=== PATIENT | female | born 1975 | race Hispanic/Latino ===

== ENCOUNTER 2017-09-15 11:49 | Emergency (ER) | payer MEDICAID, OTHER ==
[2017-09-15 12:17] LABS: APPEARANCE,URINE Clear (CLEAR); BILIRUBIN,URINE Negative (NEGATIVE); COLOR,URINE Yellow (YELLOW); GLUCOSE, URINE (UA) Negative (NEGATIVE); KETONES,URINE Negative (NEGATIVE); LEUKOCYTE ESTERASE ,URINE Negative (NEGATIVE); NITRATE,URINE Negative (NEGATIVE); OCCULT BLOOD,URINE Negative (NEGATIVE); PROTEIN,URINE Trace (NEGATIVE)
[2017-09-15 12:21] LABS: HCG,QUAL RESULT NEGATIVE (NEGATIVE)
[2017-09-15] MEDS ORDERED: PROCHLORPERAZINE EDISYLATE 10 MG/2 ML VIAL ONE (13:09)
== END 2017-09-15 14:48 | disposition home or self-care (01) ==
LOC: EDH 11:49
DX: G43.109 Migraine with aura, not intractable, without status migrainosus (principal)
CPT/HCPCS: 70450; 81003; 81025; 96374; 99284; J0780

== ENCOUNTER 2018-04-18 09:47 | Emergency (ER) | payer SELFPAY ==
[2018-04-18] MEDS ORDERED: BENZONATATE 100 MG CAPSULE PO ONE (10:18)
[2018-04-18] MEDS ORDERED: GUAIFENESIN SUGAR-FREE 100 MG/5 ML UDCUP ONE (10:18)
== END 2018-04-18 11:38 | disposition home or self-care (01) ==
LOC: EDH 09:47
DX: J06.9 Acute upper respiratory infection, unspecified (principal); Z90.710 Acquired absence of both cervix and uterus; Z90.49 Acquired absence of other specified parts of digestive tract
CPT/HCPCS: 71046

== ENCOUNTER 2022-12-25 17:48 | Emergency (ER) | payer BC ==
[~2022-12-25] VITALS: Ht 154.9 cm; Wt 77.1 kg
[2022-12-25] MEDS ORDERED: HYDROCODONE/ACETAMINOPHEN 5/325 MG TAB PO ONE (20:00)
[2022-12-25] MEDS ORDERED: NAPR-1192 PO (21:52)
[2022-12-25] MEDS ORDERED: CYCL10TA16 PO (21:52)
[2022-12-25 22:02] VITALS: BP 142/78; PULSE 72; RESP 16; O2SAT 97
== END 2022-12-25 22:10 | disposition home or self-care (01) ==
LOC: EDH 17:48
DX: S43.402A Unspecified sprain of left shoulder joint, initial encounter (principal); W01.0XXA Fall on same level from slipping, tripping and stumbling without subsequent striking against object, initial encounter; Y93.89 Activity, other specified; Y92.89 Other specified places as the place of occurrence of the external cause; Y99.8 Other external cause status
CPT/HCPCS: 71045; 73030

== ENCOUNTER 2024-04-02 17:15 | Emergency (ER) | payer BC ==
[~2024-04-02] VITALS: Ht 157.5 cm; Wt 81.6 kg
[~2024-04-02 17:15] MED LIST: HYDR12.54 PO; LEVO50TA4 PO; LISI5TAB21 PO
[2024-04-02] MEDS: ketOROlac 15MG/ML VIAL (15MG/ML) IM ONE (17:40)
[2024-04-02] MEDS: ORPHENADRINE 60MG/2ML IM ONE (17:40)
--- NOTE | 2024-04-02 17:49 | ERN ---
General Chief Complaint: Back Pain-No Injury Stated Complaint: BACK PAIN Time Seen by MD: 17:18 Time Seen by Midlevel: 17:18 Source: patient History of Present Illness Initial Comments Patient is a 48-year-old female with a past medical history of hypertension on lisinopril and hydrochlorothiazide presenting to the emergency department with lower back pain. 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 She does report a fall proximally 1-1/2 weeks ago. Since then she was seen her primary care doctor twice but was told everything was fine. Today she reports developing lower back pain after getting up from the floor. Denies any falls today. She specifically denies any focal weakness, numbness, tingling, urinary/bowel incontinence, or any other symptoms at this time. The pain is reproducible with movement. No other symptoms reported at this time. Allergies: Coded Allergies: No Known Drug Allergies (Unverified Allergy, Unknown, 12/25/22) Home Meds Reported Medications Levothyroxine Sodium (Synthroid 50 Mcg Tab) 50 Mcg Tablet, 50 MCG PO DAILY, TAB 07/29/23 Hydrochlorothiazide (Hydrochlorothiazide) 12.5 Mg Tablet, 12.5 MG PO DAILY, TAB 07/29/23 Lisinopril (Lisinopril) 5 Mg Tablet, 5 MG PO DAILY, TAB 07/29/23 Past Medical History Past Medical History: Hypothyroid Past Surgical History: Appendectomy, Hysterectomy, Cholecystectomy ROS Dictation CONSTITUTIONAL: Negative except for HPI HEAD/FACE: Negative except for HPI EENT: Negative except for HPI RESPIRATORY: Negative except for HPI GASTROINTESTINAL/ABDOMINAL: Negative except for HPI GENITOURINARY: Negative except for HPI MUSCULOSKELETAL: Negative except for HPI INTEGUMENTARY: Negative except for HPI NEUROLOGICAL/PSYCH: Negative except for HPI HEMATOLOGIC/LYMPHATIC: Negative except for HPI All Systems Negative, Except as noted above. 13 point review of systems assessed and all negative except for above. Physical Exam Physical Exam Dictation Vital Signs reviewed General Appearance: Alert, oriented x 3, no acute distress, well developed, nourished. Head and Face: non-traumatic. Eyes: PERRL, pink conjunctivas, eyelid no trauma, anterior chamber with arcus senilis. Ears: Pinnas intact and no signs of trauma or erythema ear canals clear and no discharge TM no erythema Nose: No discharge, no bleeding. Oropharynx: Mouth normal, tongue pink, pharynx clear,no erythema, tonsils no exudates, no abscesses noted, mucous membrane moist Neck: Supple, non-tender, no thyromegaly, no masses, no JVD, no bruits Breast:Deferred Chest:No tenderness, no crepitus, no paradoxical movement, no retractions Lungs:Clear, well-ventilated, symmetric, no rales, no wheezing, no rhonchi, no stridor, good breath sounds bilaterally Heart: Regular rate, regular rhythm, no murmur, no gallops Vascular: no peripheral edema, Abdomen: Soft, positive bowel sounds, nondistended, no guarding, nontender, no rebound, no masses no hepatomegaly, no splenomegaly, no Lopez's sign, no hernias. Rectal: Deferred Genital: Deferred Neurological: Normal speech, motor function intact, sensory function intact Musculoskeletal: Neck nontender, full range of motion, paraspinal muscle tenderness to the lumbar region, no midline tenderness, full range of motion, Extremities: nontender, full range of motion Skin: Color pink, dry, no turgor, no rash, no lacerations, no abrasions, no contusions. Lymphatic: Deferred MDM MDM: Patient is a 48-year-old female with a past medical history of hypertension on lisinopril and hydrochlorothiazide presenting to the emergency department with lower back pain. 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 She does report a fall proximally 1-1/2 weeks ago. Since then she was seen her primary care doctor twice but was told everything was fine. Today she reports developing lower back pain after getting up from the floor. Denies any falls today. She specifically denies any focal weakness, numbness, tingling, urinary/bowel incontinence, or any other symptoms at this time. The pain is reproducible with movement. No other symptoms reported at this time. Past surgical history includes hysterectomy. Initial vital signs are remarkable for a temperature of 98.4. Heart rate of 65 beats per minute. Respiratory rate of 16 breaths per minute. Blood pressure is 174/102 however patient admits to not taking her lisinopril today. O2 saturation is stable at 97% on room air. On physical examination [facility]. The pain is reproducible with movements. She has some paraspinal muscle tenderness to the lumbar region, no midline tenderness is appreciated. Patient does not have any red flag symptoms. She was 5/5 strength to bilateral upper and lower extremity. Sensation is intact. An x-ray of the lumbar spine and sacral/coccyx area does not show any acute fracture or dislocation. Patient was given pain medication in the emergency department will be discharged home with supportive management. Return precautions discussed. Differential diagnosis: Lumbar strain, acute fracture, dislocation There are no social concerns with this patient. Prescription drug management Prescriptions will include: Toradol and Flexeril Medical management and examination interpretation discussions were had by me with other qualified healthcare professionals as indicated for the patient's care. ED Course Orders Procedure Category Date Status Time Lumbar Spine 2-3vws RAD 04/02/24 Taken 17:25 Sacrum/Coccyx 2+Vws RAD 04/02/24 Taken 17:25 Ketorolac PHA 04/02/24 Complete Tromethamine 15mg/Ml 17:30 Orphenadrine Citrate PHA 04/02/24 Complete (Norflex) 17:30 Current Medications Medications (Trade) Dose Ordered Sig/Jan Route PRN Reason Start Time Stop Time Status Last Admin Dose Admin Ketorolac Tromethamine (toRADol) 15 mg ONCE ONCE IM 04/02/24 17:30 04/02/24 17:31 DC 04/02/24 17:40 Orphenadrine Citrate (Norflex) 60 mg ONCE ONCE IM 04/02/24 17:30 04/02/24 17:31 DC 04/02/24 17:40 Vital Signs Date Time Temp Pulse Resp B/P (MAP) Pulse Ox O2 Delivery O2 Flow Rate FiO2 04/02/24 17:23 98.4 65 16 174/102 97 Room Air* 0 21 04/02/24 17:18 98.4 65 16 174/102 97 Room Air 0 DX & DISP Disposition: Discharge Departure Impression: Primary Impression: Low back strain Condition: Stable Scripts Cyclobenzaprine HCl (Flexeril) 10 Mg Tab 10 MG PO TID for muscle sstiffness, #14 TAB 0 Refills Prov: JUANITA MUNIZ 04/02/24 Ketorolac Tromethamine (Ketorolac Tromethamine) 10 Mg Tablet 1 TAB PO TID for pain for 5 Days, #15 TAB 0 Refills Prov: JUANITA MUNIZ 04/02/24 Additional Instructions: The x-ray of your lower back does not show any acute fracture or dislocation. Your sacrum and coccyx does not show any evidence of an acute fracture. You were given pain medication in the emergency department. I have given you a prescription for Toradol and Flexeril. Flexeril is a muscle relaxer. Please avoid operating any heavy machinery/vehicles after taking this medication as it may cause drowsiness. I suggest you take this medication at night. Please follow up with your primary care doctor in 2-3 days for repeat evaluation. Return to the ER for any new or worsening symptoms Referrals: VINEET SAMS (PCP) Time of Disposition: 19:28 I have reviewed the case, and I agree with, Diagnosis and Plan I performed the substantive portion of the visit. I have reviewed and personally made and approve the management plan that is documented in the note by myself or the SMILEY. I acknowledge for responsibility for the patient's management plan. JUANITA MUNIZ Apr 02, 2024 17:49
[2024-04-02] MEDS ORDERED: CYCL10TA16 PO (19:29)
[2024-04-02] MEDS ORDERED: KETO10TA2 PO (19:29)
[2024-04-02 20:02] VITALS: BP 157/88; PULSE 60; RESP 16; TEMP 98.4; O2SAT 97
--- NOTE | 2024-04-02 20:36 | HMCIMG ---
EXAM: SACRUM/COCCYX 2+VWS CLINICAL HISTORY: fall COMPARISON:None. TECHNIQUE: AP and lateral images of the lumbar spine were obtained. FINDINGS: Vertebral bodies have normal height and are well aligned. No fracture identified. Disc interspace heights are preserved. Soft tissues appear unremarkable. IMPRESSION: Normal lumbar spine.
--- NOTE | 2024-04-02 20:47 | HMCIMG ---
LUMBAR SPINE 2-3VWS CLINICAL HISTORY: fall COMPARISON: None TECHNIQUE: 3 images were obtained. FINDINGS: Evaluation is suboptimal due to overlying bowel gas. The sacrum and coccyx appear grossly normal. No displaced fracture or subluxation noted. SI joints appear normal as does the symphysis pubis. Soft tissues appear unremarkable as well. IMPRESSION: Normal views of the sacrum and coccyx.
== END 2024-04-02 20:03 | disposition home or self-care (01) ==
LOC: EDH 17:15
DX: S39.012A Strain of muscle, fascia and tendon of lower back, initial encounter (principal); E03.9 Hypothyroidism, unspecified; I10 Essential (primary) hypertension; Z79.890 Hormone replacement therapy; Z90.49 Acquired absence of other specified parts of digestive tract; Z90.710 Acquired absence of both cervix and uterus; W18.39XA Other fall on same level, initial encounter; Y93.89 Activity, other specified; Y92.89 Other specified places as the place of occurrence of the external cause; Y99.8 Other external cause status
CPT/HCPCS: 99284; 72100; 72220; 96372 ×2; J1885; J2360